=== PATIENT | female | born 1995 | race Caucasian/White ===

== ENCOUNTER 2022-07-21 09:52 | Emergency (ER) | payer MEDICAID ==
[~2022-07-21] VITALS: Ht 170.2 cm; Wt 62.7 kg
[2022-07-21 09:59] VITALS: BP 106/44
[2022-07-21] MEDS ORDERED: acetaminophen 325mg tablet PO ONE (11:05)
== END 2022-07-21 11:43 | disposition home or self-care (01) ==
LOC: ER 09:52
DX: S63.611A Unspecified sprain of left index finger, initial encounter (principal); F17.200 Nicotine dependence, unspecified, uncomplicated; X58.XXXA Exposure to other specified factors, initial encounter; Y93.89 Activity, other specified; Y92.89 Other specified places as the place of occurrence of the external cause; Y99.8 Other external cause status
CPT/HCPCS: 29130; 73130; 99283

== ENCOUNTER 2023-06-23 10:24 | Emergency (ER) | payer MEDICAID ==
[~2023-06-23] VITALS: Ht 170.2 cm; Wt 58.0 kg
[2023-06-23 10:31] VITALS: BP 106/50; PULSE 78; RESP 18; O2SAT 98
[2023-06-23] MEDS ORDERED: NAPR-56 PO (11:06)
[2023-06-23 11:27] VITALS: TEMP 98
== END 2023-06-23 11:28 | disposition home or self-care (01) ==
LOC: ER 10:25
DX: S93.692A Other sprain of left foot, initial encounter (principal); W10.8XXA Fall (on) (from) other stairs and steps, initial encounter; Y93.89 Activity, other specified; Y92.89 Other specified places as the place of occurrence of the external cause; Y99.8 Other external cause status
CPT/HCPCS: 29540; 73630; 99283; L1930